=== PATIENT | female | born 1945 | race Caucasian/White ===

== ENCOUNTER 2025-07-14 05:43 | Emergency (ER) | payer MEDICARE, OTHER, SELFPAY ==
[2025-07-14 05:47] VITALS: BP 184/93
--- NOTE | 2025-07-14 06:02 | ED.GENMED ---
History of Present Illness
General
Chief Complaint: Chest Pain
Time Seen by Provider: 07/14/25 06:02
History of Present Illness
History of Present Illness:
FOCUSED PAST MEDICAL HISTORY
- Hyperlipidemia
REVIEW OF OLD RECORDS
- No old records available for review in [facility]
Note:
CHIEF COMPLAINT(S)
Discomfort in the upper abdomen and lower chest area, accompanied by nausea and vomiting.
HISTORY OF PRESENT ILLNESS
The patient is an 80-year-old female who presented due to discomfort in the upper abdomen and lower chest area, which began approximately 18 hours ago after having lunch. She describes the discomfort as non-specific and denies any sharp abdominal
pains, characterizing it instead as discomfort. The patient experienced nausea and has vomited four times, with some episodes occurring consecutively. Each episode of vomiting provided minimal relief. She also reported a loose stool episode shortly
after the onset of symptoms, but not diarrhea. She has continued to have loose stool. She denies any radiation of symptoms to the jaw or back, and reports no sweating, headaches, or changes in bowel habits beyond the isolated loose stool. The
patient received her COVID-19 and flu vaccinations recently and speculated on a possible but unlikely connection.
She has a history of having her gallbladder removed and a partial nephrectomy. She has been experiencing mild nausea at present, and there is consideration for administering antiemetic medication and fluids. The patient denies any pain when pressure
is applied to the abdomen or chest. An EKG conducted showed normal results, and a cardiac issue is deemed unlikely. Given the possibility of stomach acid involvement, a quicker acting acid chaz like famotidine is being considered.
Patient states that her symptoms do not worsen with exertion. She was never diaphoretic and has no shortness of breath. Symptoms are associated with loose stool.
PAST MEDICAL AND SURIGICAL HISTORY
Gallbladder removal
Partial nephrectomy
IMMUNIZATION HISTORY
Recent COVID-19 and flu vaccinations
PHYSICAL EXAM
General: Alert, no acute distress. Appears comfortable
Skin: Warm, dry.
Head: Normocephalic, atraumatic.
Neck: Supple, trachea midline.
Eye Ears, Nose, Mouth, and Throat: Oral mucosa moist.
Cardiovascular: Normal peripheral perfusion, No edema. No chest wall tenderness
Respiratory: Respirations are non-labored.
Gastrointestinal: Abdomen nondistended. There is no significant abdominal tenderness
Back: Normal range of motion, Normal alignment.
Musculoskeletal: Normal ROM, normal strength.
Neurological: Alert and oriented to person, place, time, and situation, No focal neurological deficit observed.
Psychiatric: Cooperative, appropriate mood & affect.
PROBLEM LIST
Acute Problems:
- Discomfort in upper abdomen and lower chest area
- Nausea and vomiting
- Loose stool after eating
PLAN
- Perform a cardiac evaluation and blood work including cardiac blood work and basic laboratory tests.
- Administer Zofran (ondansetron) for nausea and provide IV fluids.
- Obstruction series x-ray and consider the potential need for a CT scan based on symptom progression.
- Administer famotidine for possible acid-related discomfort.
- Monitor the patients condition and reassess accordingly.
DIFFERENTIAL DIAGNOSIS
The Differential Diagnosis includes, in no particular order and is not limited to:
1. Gastroesophageal reflux disease (GERD)
2. Gastritis
3. Peptic ulcer disease
4. Viral gastroenteritis
5. Food poisoning
6. Cardiac issues (less likely given normal EKG)
7. Mechanical obstruction
8. Medication-induced gastritis
9. Pancreatitis
10. Stomach or duodenal ulcers
11. Vaccination side effect
RADIOLOGY
- Obstruction series obtained�no evidence of obstruction
EKG
- Sinus 71, normal axis, no acute ST abnormality, no old to compare
LABS
- White count and hemoglobin are both normal, chemistries including lipase normal, troponin less than 0.012
UPDATE
- Despite 16 hours of ongoing symptoms, the patient has a normal EKG and a troponin less than 0.012
SUMMARY OF ENCOUNTER
The patient is an 80-year-old female who presented to the emergency department with discomfort in the upper abdomen and lower chest, accompanied by nausea and vomiting and an episode of loose stool after eating. An EKG was performed, which showed
normal results, and blood work was conducted with normal heart-related numbers. There were no signs of obstruction found on imaging, and the lungs appeared clear, making a cardiac event unlikely. The patients symptoms might be due to a viral
syndrome. Given her stable condition, [id number] famotidine was advised, and a prescription for ondansetron for nausea was offered and accepted. The patient received IV fluids to ensure adequate hydration.
ASSESSMENT
The symptoms are suspected to be related to a viral gastroenteritis or possibly GERD, given the normal cardiac findings. Food poisoning is considered less likely.
EMERGENCY TREATMENTS ADMINISTERED
The patient was given IV fluids for rehydration.
PLAN
- Prescription for ondansetron (Zofran) will be sent to the patients pharmacy for nausea management.
- Recommend [id number] famotidine for possible acid-related discomfort.
- Advise on returning to the emergency department if symptoms worsen.
MEDICATION RECONCILIATION
- Ondansetron (Zofran) prescription was sent for nausea management.
INDEPENDENT REVIEW OF LABS AND INTERPRETATION OF TESTS
My independent review of cardiac-related blood work indicates no signs of cardiac distress; numbers are within normal limits.
My independent interpretation of the EKG shows no changes indicative of a heart attack.
MEDICAL DECISION MAKING
- Complexity of Data Reviewed: Chronic conditions affecting care include the patients history of gallbladder removal and partial nephrectomy. Considered differential diagnoses include viral gastroenteritis, gastroesophageal reflux disease (GERD),
gastritis, peptic ulcer disease, and possibly food poisoning.
- Data:
Category 1
Independent interpretation of labs showed normal cardiac-related numbers, and the EKG was unremarkable.
Category 3
- There was no need for specialist consultation as the examination and test results didnt indicate a cardiac event.
-Risk:
Prescription medication was prescribed for nausea management. Admission or observation was considered; however, outpatient management was deemed safe with a prescription given and instructions for follow-up upon symptom exacerbation.
DIAGNOSIS
- Chest pain
- Vomiting and loose stool
Phy Exam
Physical Exam
Physical Exam:
See HPI
Scores
Heart Score for Chest Pain Patients
STEMI patient?: Not applicable
Course
Orders/Labs/Results
Orders:
Orders
07/14/25 05:44
Electrocardiogram (*1) Urgent
Reason for Study: Chest Pain
EKG- Treatment ONCE
07/14/25 06:03
0.9% Sodium Chloride 500 ml [Nss] 500 ml IV BOLUS
07/14/25 06:13
Complete Blood Count/With Diff Urgent
Comprehensive Metabolic Panel Urgent
Lipase Urgent
Magnesium Urgent
Troponin I Urgent
Famotidine [Pepcid] 20 mg IV NOW STA
Ondansetron HCl [Zofran] 4 mg PO NOW STA
07/14/25 06:14
Obstruct Series W/PA Chest [CR Obstruct Series W/pa Chest] Urgent
Comment:
Reason For Exam: CP / upper abd pain / vomiting
07/14/25 06:16
Ondansetron Injectable [Zofran] 4 mg IV NOW STA
Abnormal Lab Results
07/14/25
06:13
MPV 12.0 H fL
(7.4-10.4)
Absolute Lymphs (auto) 0.9 L 10^3/uL
(1.2-3.4)
Neutrophils % 76.1 H %
(42.2-75.2)
Lymphocytes % 14.5 L %
(20.5-51.1)
Glucose 109 H mg/dl
(70-99)
ALT 36 H U/L
(0-35)
07/14/25 06:13
07/14/25 06:13
Vital Signs
Initial and Last Documented VS:
Initial Vital Signs
Temp Pulse BP
36.8 C 66 184/93
07/14/25 05:47 07/14/25 05:47 07/14/25 05:47
Last Documented Vital Signs
Temp Pulse Resp BP Pulse Ox
36.8 C 62 12 184/93 97
07/14/25 05:47 07/14/25 06:00 07/14/25 06:00 07/14/25 05:47 07/14/25 06:03
*Pulse Oximetry
SaO2: 97
Oxygen Mode of Delivery: Room air
Patient hypoxic: no
*Critical Care Note
Total Time (30-74mins, 75-104mins- exclusive of procedures): Not Applicable
ED Attending Note
-
Portions of this chart may have been created with voice recognition software.� Occasional wrong word or��sound alike� substitutions may have occurred due to the inherent limitations of voice recognition software.
Discharge Plan
Departure
Patient Disposition: Home (Routine Discharge)
Date of Disposition: 07/14/25
Time of Disposition: 07:35
Patient with high blood pressure during this ER visit?: Yes
Discharge Problem:
Acute epigastric pain
Instructions: Acid Reflux and GERD in Adults (DC), Nausea and vomiting in adults, Chest Pain DCA Follow Up
Prescriptions:
New
ondansetron HCl 4 mg tablet
4 mg PO Q8H PRN (Reason: nausea and vomiting) Qty: 10 0RF
Referrals:
Abdi Sevilla MD [Family Provider, Internal Medicine]
Activity Restrictions/Additional Instructions:
White count and hemoglobin are both normal, chemistries, heart attack blood test was negative, pancreas and liver numbers are normal. EKG is normal. I see no sign of obstruction on the x-rays. It is possible your symptoms could related to stomach
acid, continue Pepcid as an outpatient. I am sending a prescription for Zofran to your pharmacy. Food poisoning or a viral syndrome are also possible as well.
Interventions
Interventions:
*Risk Screen - Suicide Last Done: 07/14/25 05:53
*Neglect/Abuse Screening Last Done: 07/14/25 05:53
*ED- Fall Risk Assessment Last Done: 07/14/25 05:53
*ED COVID-19 Vaccine History Last Done: 07/14/25 05:53
*ED Influenza Vaccine History Last Done: 07/14/25 05:53
ED- Cardiac Assessment Last Done: 07/14/25 06:49
Discharge Date and Time
Print Language: FRISIAN
[2025-07-14] MEDS: ZOFRAN 4 MG IV (06:22)
[2025-07-14] MEDS: PEPCID 20 MG IV (06:22)
[2025-07-14 06:33] LABS: Hematocrit 39.7 % (37.0-47.0); Hemoglobin 13.4 g/dL (12.0-16.0); Mean Corp Hgb Conc. 33.8 g/dL (33.0-37.0); Mean Corpuscular Volume 91.9 fL (81.0-99.0); Nucleated Red Blood Cells % 0 %; Platelet Count 222 10^3/uL (130-400); Red Cell Dist. Width 12.5 % (11.5-14.5)
[2025-07-14] MEDS: NSS 500 IV (06:42)
[2025-07-14 06:58] LABS: ALT (SGPT) 36 U/L (0-35); AST (SGOT) 30 U/L (14-36); Albumin 4.2 g/dl (3.5-5.0); Alkaline Phosphatase 84 U/L (38-126); Blood Urea Nitrogen 17 mg/dl (7-17); Calcium 10.0 mg/dl (8.4-10.2); Carbon Dioxide 27 mmol/L (22-30); Chloride 100 mmol/L (98-107); Glucose 109 mg/dl (70-99); Lipase 167 U/L (23-300); Magnesium 1.9 mg/dl (1.6-2.3); Potassium 3.8 mmol/L (3.5-5.1); Sodium 135 mmol/L (135-145); Total Protein 7.4 g/dl (6.3-8.2); eGFR > 60.00
[2025-07-14 07:04] LABS: Troponin I < 0.012 ng/ml
== END 2025-07-14 07:43 | disposition home or self-care (01) ==
LOC: EMR 05:43
PROVIDERS: EMERGENCY PHYSICIAN Emergency Medicine; FAMILY PHYSICIAN Internal Medicine
DX: R10.13 Epigastric pain (principal); E78.00 Pure hypercholesterolemia, unspecified; Z90.49 Acquired absence of other specified parts of digestive tract; Z90.5 Acquired absence of kidney
CPT/HCPCS: 99283; 96374; 96375; 96361; 74022; 80053; 83690; 83735; 84484; 85025; 93005